=== PATIENT | female | born 1935 | race Caucasian/White ===

== ENCOUNTER 2022-12-25 17:39 | Inpatient (IN) | payer MEDICARE ==
[~2022-12-25] VITALS: Ht 157.5 cm; Wt 61.7 kg
[2022-12-25 17:52] VITALS: BP_SYST 180; PULSE 97; RESP 18; TEMP 98.5; O2SAT 97
[2022-12-25 19:43] LABS: HEMATOCRIT 37.6 % (36-48); HEMOGLOBIN 12.4 g/dL (12.0-16.0); MEAN CORPUSCULAR HEMOGLOBIN 30 pg (27-31); MEAN CORPUSCULAR HGB CONC 33 % (32-36); MEAN CORPUSCULAR VOLUME 92 fL (79.0-98.0); PLATELET COUNT (AUTO) 158 K/uL (130-430); RED CELL DISTRIBUTION WIDTH 13.9 % (9.0-15.0); WHITE BLOOD COUNT (AUTO) 3.6 K/uL (4.8-10.8)
[2022-12-25 19:58] LABS: ANION GAP 10 (5-15); CALCIUM 8.3 mg/dL (8.4-11.0); CARBON DIOXIDE 26 mmol/L (23-29); CHLORIDE 97 mmol/L (98-107); CREATININE 0.56 mg/dL (0.55-1.30); GLUCOSE 116 mg/dL (74-106); POTASSIUM 3.6 mmol/L (3.5-5.1); SODIUM SERUM 133 mmol/L (136-145); UREA NITROGEN, BLOOD 15 mg/dL (8-21)
[2022-12-25 20:03] LABS: INR 1.1 (0.8-1.2); PROTHROMBIN TIME 11.5 SECS (9.5-12.5)
[2022-12-25 20:04] LABS: BAND % (MANUAL) 17 % (0-6); BASOPHILS % (MANUAL) 0 % (0-2); EOSINOPHILS % (MANUAL) 0 % (0-7); LYMPHOCYTES % (MANUAL) 8 % (20-46); MONOCYTES % (MANUAL) 2 % (0-11); PLATELET ESTIMATE ADEQUATE (ADEQUATE)
[2022-12-25 20:17] LABS: ALANINE AMINOTRANSFERASE 28 U/L (12-78); ALBUMIN 3.1 g/dL (3.4-4.8); ASPARTATE AMINOTRANSFERASE 57 U/L (10-37); TOTAL BILIRUBIN 0.8 mg/dL (0.0-1.0); TOTAL PROTEIN, SERUM 6.5 g/dL (6.4-8.3)
[2022-12-25] MEDS ORDERED: ASPIRIN 81 MG TABLET(ECOTRIN) PO ONE (22:15)
[2022-12-25 22:16] LABS: BILIRUBIN,URINE NEGATIVE (NEGATIVE); BLOOD, URINE 2+ (NEGATIVE); CLARITY/URINE Cloudy (CLEAR); COLOR,URINE YELLOW (YELLOW); GLUCOSE,URINE NEGATIVE (NEGATIVE); KETONES,URINE TRACE (NEGATIVE); LEUKOCYTE ESTERASE ,URINE 1+ (NEGATIVE); NITRITE, URINE NEGATIVE (NEGATIVE); PROTEIN URINE 2+ (NEGATIVE); UROBILINOGEN,URINE 0.2 (0.2-1.0)
[2022-12-25 22:43] LABS: BACTERIA,URINE MANY /HPF (None Seen); URINE AMORPHOUS URATE 3+ /HPF (None Seen); WBC,URINE 50-80 /HPF (0-3)
[2022-12-25 22:44] LABS: COARSE GRANULAR CASTS,URINE 0-10 /LPF (None Seen); MUCUS,URINE None Seen /LPF (None Seen)
[2022-12-26] VITALS (9 sets, daily range): BP systolic 90–186; PULSE 61–112; RESP 16–20; TEMP 96.9–102.2; O2SAT 92–97
[2022-12-26] MEDS ORDERED: LIP10 PO (00:02)
[2022-12-26] MEDS ORDERED: HYDR12.55 PO (00:04)
[2022-12-26] MEDS ORDERED: AZITHROMYCIN 250 MG TABLET PO ONE (00:45)
[2022-12-26] MEDS ORDERED: cefTRIAXone 1 GM in D5W 50 ML IV ONE (00:45)
[2022-12-26] MEDS ORDERED: ENOXAPARIN SODIUM 60 MG/0.6 ML SYRINGE SUBCUT ONE ×2 (00:45→11:00)
[2022-12-26] MEDS ORDERED: ACETAMINOPHEN 325 MG TABLET PO ONE (00:45)
[2022-12-26] MEDS ORDERED: ACETAMINOPHEN 325 MG TABLET PO PRN (01:45)
[2022-12-26 02:44] LABS: INFLUENZA TYPE A negative (NEGATIVE); INFLUENZA TYPE B NEGATIVE (NEGATIVE)
[2022-12-26] MEDS ORDERED: cefTRIAXone 1 GM VIAL ONE (03:09)
[2022-12-26] MEDS ORDERED: AZITHROMYCIN 500 MG/VIAL (ZITHROMAX) IV ONE (03:10)
[2022-12-26] MEDS: cefTRIAXone 1 GM in D5W 50 ML IV SCH (03:44)
[2022-12-26] MEDS: AZITHROMYCIN 500 MG in NS 250 ML IV SCH (04:00)
[2022-12-26] MEDS ORDERED: NS 500 ML IV ONE (07:15)
[2022-12-26 07:45] LABS: BASOPHILS % (AUTO) 0.2 % (0.0-2.0); EOSINOPHILS % (AUTO) 0.2 % (0.0-4.0); HEMATOCRIT 30.1 % (36-48); HEMOGLOBIN 10.1 g/dL (12.0-16.0); LYMPHOCYTES # (AUTO) 0.6 K/uL (1.0-5.5); LYMPHOCYTES % (AUTO) 7.9 % (20.5-51.5); MEAN CORPUSCULAR HEMOGLOBIN 30 pg (27-31); MEAN CORPUSCULAR HGB CONC 34 % (32-36); MEAN CORPUSCULAR VOLUME 91 fL (79.0-98.0); MONOCYTES # (AUTO) 0.9 K/uL (0.0-1.0); MONOCYTES % (AUTO) 13.3 % (1.7-9.3); NEUTROPHILS # (AUTO) 5.6 K/uL (1.8-7.7); NEUTROPHILS % (AUTO) 78.4 % (40.0-70.0); PLATELET COUNT (AUTO) 143 K/uL (130-430); RED BLOOD CELL COUNT(AUTO) 3.32 MIL/uL (4.2-6.2); RED CELL DISTRIBUTION WIDTH 13.7 % (9.0-15.0); WHITE BLOOD COUNT (AUTO) 7.1 K/uL (4.8-10.8)
[2022-12-26 08:00] LABS: ANION GAP 8 (5-15); CALCIUM 7.6 mg/dL (8.4-11.0); CARBON DIOXIDE 26 mmol/L (23-29); CHLORIDE 98 mmol/L (98-107); CREATININE 0.49 mg/dL (0.55-1.30); GLUCOSE 86 mg/dL (74-106); SODIUM SERUM 132 mmol/L (136-145); UREA NITROGEN, BLOOD 10 mg/dL (8-21)
[2022-12-26 08:18] LABS: ALANINE AMINOTRANSFERASE 33 U/L (12-78); ALBUMIN 2.4 g/dL (3.4-4.8); ASPARTATE AMINOTRANSFERASE 53 U/L (10-37); CHOLESTEROL 87 mg/dL (<200); FREE T4 (FREE THYROXINE) 1.2 ng/dL (0.6-1.6); HDL CHOLESTEROL 56 mg/dL (>55); THYROID STIMULATING HORMONE 1.35 uIu/mL (0.34-4.82); TOTAL BILIRUBIN 0.6 mg/dL (0.0-1.0); TOTAL PROTEIN, SERUM 5.3 g/dL (6.4-8.3); TRIGLYCERIDES 36 mg/dL (30-150)
[2022-12-26] MEDS ORDERED: POTASSIUM CHLORIDE 20 MEQ/PKT PACKET PO ONE (08:45)
[2022-12-26] MEDS: ASPIRIN 81 MG TABLET(ECOTRIN) PO SCH (09:50)
[2022-12-26] MEDS: NACL 0.9% 1,000 ML IV SCH ×2 (09:51→21:32)
[2022-12-26] MEDS ORDERED: ENOXAPARIN SODIUM 40 MG/0.4 ML SYRINGE SUBCUT ONE (11:00)
[2022-12-26] MEDS ORDERED: ENOXAPARIN SODIUM 60 MG/0.6 ML SYRINGE SUBCUT SCH (11:00)
[2022-12-26] MEDS ORDERED: traMADol HCL HCL 50 MG TABLET (ULTRAM) PO PRN (11:45)
[2022-12-26] MEDS ORDERED: amLODIPine BESYLATE 10 MG TABLET PO ONE (12:30)
[2022-12-26] MEDS ORDERED: KCL 40 mEq in 100 mL (PREMIX) 100 ML IV ONE (18:00)
[2022-12-26] MEDS ORDERED: POTASSIUM CHLORIDE 20 MEQ TAB.PRT.SR PO ONE (18:15)
[2022-12-26] MEDS: POTASSIUM CHLORIDE 20 mEq in 100 mL (PREMIX) 100 ML x 2 doses IV SCH ×2 (18:46→21:29)
[2022-12-26] MEDS ORDERED: ENOXAPARIN SODIUM 40 MG/0.4 ML SYRINGE SUBCUT SCH (21:00)
[2022-12-26] MEDS: ATORVASTATIN 10 MG TABLET PO SCH (21:29)
[2022-12-26] MEDS: POTASSIUM CHLORIDE 20 MEQ TAB.PRT.SR PO SCH (21:29)
[2022-12-26] MEDS: ENOXAPARIN SODIUM 60 MG/0.6 ML SYRINGE SUBCUT SCH (21:30)
[2022-12-27 00:52] VITALS: BP_SYST 97; PULSE 54; RESP 17; TEMP 98.4; O2SAT 100
[2022-12-27] MEDS: cefTRIAXone 1 GM in D5W 50 ML IV SCH (01:20)
[2022-12-27] MEDS: AZITHROMYCIN 500 MG in NS 250 ML IV SCH (01:43)
[2022-12-27 05:18] LABS: BASOPHILS % (AUTO) 0.2 % (0.0-2.0); EOSINOPHILS % (AUTO) 0.5 % (0.0-4.0); HEMATOCRIT 30.4 % (36-48); HEMOGLOBIN 10.3 g/dL (12.0-16.0); LYMPHOCYTES # (AUTO) 0.8 K/uL (1.0-5.5); LYMPHOCYTES % (AUTO) 11.4 % (20.5-51.5); MEAN CORPUSCULAR HEMOGLOBIN 31 pg (27-31); MEAN CORPUSCULAR HGB CONC 34 % (32-36); MEAN CORPUSCULAR VOLUME 91 fL (79.0-98.0); MONOCYTES # (AUTO) 1.2 K/uL (0.0-1.0); MONOCYTES % (AUTO) 16.8 % (1.7-9.3); NEUTROPHILS # (AUTO) 5.2 K/uL (1.8-7.7); NEUTROPHILS % (AUTO) 71.1 % (40.0-70.0); PLATELET COUNT (AUTO) 141 K/uL (130-430); RED BLOOD CELL COUNT(AUTO) 3.36 MIL/uL (4.2-6.2); RED CELL DISTRIBUTION WIDTH 14.1 % (9.0-15.0); WHITE BLOOD COUNT (AUTO) 7.3 K/uL (4.8-10.8)
[2022-12-27 05:27] LABS: ANION GAP 8 (5-15); CALCIUM 7.6 mg/dL (8.4-11.0); CARBON DIOXIDE 23 mmol/L (23-29); CHLORIDE 100 mmol/L (98-107); GLUCOSE 96 mg/dL (74-106); POTASSIUM 4.5 mmol/L (3.5-5.1); SODIUM SERUM 131 mmol/L (136-145); UREA NITROGEN, BLOOD 11 mg/dL (8-21)
[2022-12-27 05:47] LABS: ALANINE AMINOTRANSFERASE 39 U/L (12-78); ALBUMIN 2.3 g/dL (3.4-4.8); ASPARTATE AMINOTRANSFERASE 59 U/L (10-37); TOTAL BILIRUBIN 0.4 mg/dL (0.0-1.0); TOTAL PROTEIN, SERUM 5.2 g/dL (6.4-8.3)
[2022-12-27 07:00] VITALS: BP_SYST 87; PULSE 66; RESP 16; TEMP 98.7; O2SAT 99
[2022-12-27] MEDS ORDERED: amLODIPine BESYLATE 10 MG TABLET PO SCH (09:00)
[2022-12-27] MEDS: ENOXAPARIN SODIUM 60 MG/0.6 ML SYRINGE SUBCUT SCH ×2 (10:27→20:45)
[2022-12-27] MEDS: POTASSIUM CHLORIDE 20 MEQ TAB.PRT.SR PO SCH (10:27)
[2022-12-27] MEDS: ASPIRIN 81 MG TABLET(ECOTRIN) PO SCH (10:27)
[2022-12-27 11:30] VITALS: BP_SYST 107; PULSE 66; RESP 19; TEMP 97.9; O2SAT 96
[2022-12-27] MEDS: CEFEPIME 2 GM in D5W 100 ML IV SCH (14:44)
[2022-12-27 17:30] VITALS: BP_SYST 123; PULSE 68; RESP 19; TEMP 98.6; O2SAT 95
[2022-12-27] MEDS ORDERED: MULTIVITS,CA,MINERALS/IRON/FA 1 TABLET PO ONE (18:45)
[2022-12-27 20:00] VITALS: BP_SYST 132; PULSE 71; RESP 22; TEMP 99.1; O2SAT 97
[2022-12-27 20:08] LABS: TOTAL IRON BIND. CAPACITY 203 ug/dL (250-450)
[2022-12-27] MEDS: ATORVASTATIN 10 MG TABLET PO SCH (20:45)
[2022-12-28 00:59] VITALS: BP_SYST 126; PULSE 66; RESP 18; TEMP 98.1; O2SAT 96
[2022-12-28] MEDS: AZITHROMYCIN 500 MG in NS 250 ML IV SCH (02:06)
[2022-12-28 07:42] LABS: BASOPHILS % (AUTO) 0.6 % (0.0-2.0); EOSINOPHILS # (AUTO) 0.1 K/uL (0.0-0.4); EOSINOPHILS % (AUTO) 1.3 % (0.0-4.0); HEMOGLOBIN 10.9 g/dL (12.0-16.0); LYMPHOCYTES # (AUTO) 0.9 K/uL (1.0-5.5); LYMPHOCYTES % (AUTO) 14.8 % (20.5-51.5); MEAN CORPUSCULAR HEMOGLOBIN 30 pg (27-31); MEAN CORPUSCULAR HGB CONC 33 % (32-36); MEAN CORPUSCULAR VOLUME 91 fL (79.0-98.0); MONOCYTES # (AUTO) 0.9 K/uL (0.0-1.0); MONOCYTES % (AUTO) 15.4 % (1.7-9.3); NEUTROPHILS # (AUTO) 4.2 K/uL (1.8-7.7); NEUTROPHILS % (AUTO) 67.9 % (40.0-70.0); PLATELET COUNT (AUTO) 175 K/uL (130-430); RED BLOOD CELL COUNT(AUTO) 3.63 MIL/uL (4.2-6.2); RED CELL DISTRIBUTION WIDTH 14.2 % (9.0-15.0); WHITE BLOOD COUNT (AUTO) 6.1 K/uL (4.8-10.8)
[2022-12-28 07:55] LABS: ANION GAP 7 (5-15); CALCIUM 7.9 mg/dL (8.4-11.0); CARBON DIOXIDE 24 mmol/L (23-29); CHLORIDE 104 mmol/L (98-107); CREATININE 0.49 mg/dL (0.55-1.30); GLUCOSE 91 mg/dL (74-106); POTASSIUM 3.9 mmol/L (3.5-5.1); SODIUM SERUM 135 mmol/L (136-145); UREA NITROGEN, BLOOD 9 mg/dL (8-21)
[2022-12-28 08:00] VITALS: BP_SYST 122; PULSE 71; RESP 16; TEMP 96.9; O2SAT 97; O2SAT 98
[2022-12-28 08:13] LABS: ALANINE AMINOTRANSFERASE 33 U/L (12-78); ALBUMIN 2.4 g/dL (3.4-4.8); ASPARTATE AMINOTRANSFERASE 42 U/L (10-37); TOTAL BILIRUBIN 0.4 mg/dL (0.0-1.0); TOTAL PROTEIN, SERUM 5.3 g/dL (6.4-8.3)
[2022-12-28] MEDS ORDERED: MULTIVITS,CA,MINERALS/IRON/FA 1 TABLET PO SCH (09:00)
[2022-12-28] MEDS: ENOXAPARIN SODIUM 60 MG/0.6 ML SYRINGE SUBCUT SCH (09:35)
[2022-12-28] MEDS: ASPIRIN 81 MG TABLET(ECOTRIN) PO SCH (09:35)
[2022-12-28 12:34] VITALS: BP_SYST 124; PULSE 68; RESP 17; TEMP 97.2; O2SAT 97
[2022-12-28] MEDS: CEFEPIME 2 GM in D5W 100 ML IV SCH (15:44)
[2022-12-28 16:00] VITALS: BP_SYST 123; PULSE 75; RESP 16; TEMP 97; O2SAT 98
[2022-12-28 19:36] VITALS: BP_SYST 145; PULSE 80; RESP 16; TEMP 97.2; O2SAT 97
[2022-12-28 20:00] VITALS: BP_SYST 145; PULSE 80; RESP 16; TEMP 97.2; O2SAT 97
[2022-12-29 10:06] LABS: FOLATE (FOLIC ACID) 16.3 ng/mL (>3.0)
[2022-12-30 03:36] LABS: COCCIDIOIDES AB IGG 0.2 IV (<=0.9)
[2022-12-31 19:06] LABS: MYCOPLASMA PNEUMONIAE IgM <770 U/mL (0-769)
== END 2022-12-28 21:30 | disposition short-term general hospital (02) | DRG 871 ==
LOC: SED 17:39 → STU 12-26 00:44
PROVIDERS: ADMIT Internal Medicine; ATTEND Internal Medicine
DX: A41.9 Sepsis, unspecified organism (principal); E43 Unspecified severe protein-calorie malnutrition; I21.A1 Myocardial infarction type 2; J18.9 Pneumonia, unspecified organism; N39.0 Urinary tract infection, site not specified; E87.1 Hypo-osmolality and hyponatremia; Z96.653 Presence of artificial knee joint, bilateral; I27.20 Pulmonary hypertension, unspecified; E78.5 Hyperlipidemia, unspecified; E07.9 Disorder of thyroid, unspecified; K80.20 Calculus of gallbladder without cholecystitis without obstruction; D64.9 Anemia, unspecified; Z20.822 Contact with and (suspected) exposure to COVID-19; D72.819 Decreased white blood cell count, unspecified; I10 Essential (primary) hypertension; I25.10 Atherosclerotic heart disease of native coronary artery without angina pectoris; E87.6 Hypokalemia; Z85.43 Personal history of malignant neoplasm of ovary; Z79.899 Other long term (current) drug therapy; Z63.4 Disappearance and death of family member; Z68.24 Body mass index [BMI] 24.0-24.9, adult
CPT/HCPCS: 36415; 71045; 71275; 72170-TC; 76376; 76536-TC; 80053; 80061; 81000; 82607; 82746; 82962; 83540; 83550; 83605; 83735; 83880; 84439; 84443; 84484; 85007; 85025; 85027; 85379; 85610-TC; 85730-TC; 86635; 86738; 86886; 86900; 86901; 87040; 87086; 93005; 93306; 93970; 96365; 97116-GP; 97530-GP; 99291; G0378; J0456; J0692; J0696; J1650; J1956; J3480; J7030; J7040; J7050; J7060; Q9967